=== PATIENT | female | born 1950 | race Caucasian/White ===

== ENCOUNTER → 2020-04-29 13:33 | Outpatient (CLI) | payer MEDICARE, SELFPAY ==
[2014-04-20 14:26] VITALS: BMI 21.9
[2020-04-29 15:43] LABS: Vitamin D,25 Hydroxy 32.1 ng/mL
[2020-04-29 16:01] LABS: Anion Gap 9 (5-15); BUN 13 mg/dL (7-18); BUN/Creat Ratio 14.5 RATIO (10-20); Calcium,Total 9.2 mg/dL (8.5-10.1); Chloride 106 mmol/L (98-107); Cholesterol 276 mg/dL (200); EST Glomerular Filtration Rate 66 mL/min (>60); Est Glom Filt Rate - Afr Amer 80 mL/min (>60); Glucose 87 mg/dL (74-106); High Density Lipoprotein 81 mg/dL; Sodium Level 141 mmol/L (136-145); Triglycerides 136 mg/dL; Very Low Density Lipoprotein 27 mg/dL (5-40)
== END ==
PROVIDERS: PCP Family Medicine; Referring Provider Family Medicine; Visit Provider Family Medicine
DX: Z00.00 Encounter for general adult medical examination without abnormal findings (principal); E56.9 Vitamin deficiency, unspecified
CPT/HCPCS: 36415; 80048; 80061; 82306

== ENCOUNTER → 2020-05-13 12:50 | Outpatient (CLI) | payer MEDICARE, SELFPAY ==
--- NOTE | 2020-05-13 12:54 | BI_ITS ---
MAMMOGRAPHY - BILATERAL SCREENING REASON FOR EXAM: Female, 70 years old. Routine annual screening examination. PERTINENT HISTORY: Non-contributory. TECHNIQUE: Digital bilateral breast ran (3D mammographic acquisition) in the CC and MLO projections. 2-D mediolateral oblique (MLO) and craniocaudad (CC) views of both breasts were obtained. CAD: Full Field Digital Mammography with Computer Added Detection was performed. COMPARISON: None. Baseline examination. FINDINGS: Breast Composition: There are scattered areas of fibroglandular density. There are no dominant masses or suspicious calcifications. No other significant abnormalities are identified. BI/SCRN MAMM (CAD)W/RAN BILAT IMPRESSION: Negative screening mammogram. Yearly followup mammogram recommended. (A) ASSESSMENT CATEGORY: BIRADS Category 1: Negative. A letter regarding these results will be sent to the patient by the facility within 30 days. Approximately 10% of breast cancers are not detected by mammography. A normal mammogram should not delay biopsy of a clinically suspicious abnormality. [id number] Electronically Signed: Juan Cardenas MD at 14:36 EDT , Service support ,
--- NOTE | 2020-05-13 12:55 | BD_ITS ---
STUDY: DUAL ENERGY X-RAY ABSORPTIOMETRY / DXA REASON FOR EXAM: Female, 70 years old. [id number] TECHNIQUE: Bone Mineral Density (BMD) measurements of lumbar spine and bilateral hips were obtained. COMPARISON: None. FINDINGS: Lumbar Spine (L1-L4): g/cm2 (0.756) / T-score (-3.4) / Z-score (-1.7) Findings are suggestive of osteoporosis with a high fracture risk. Left Femur Total: g/cm2 (0.620) / T-score (-3.1) / Z-score (-1.6) Left Femoral Neck: g/cm2 (0.578) / T-score (-3.3) / Z-score (-1.6) Right Femur Total: g/cm2 (0.583) / T-score (-3.4) / Z-score (-1.9) Right Femoral Neck: g/cm2 (0.560) / T-score (-3.4) / Z-score (-1.7) BD/Dexa Bone Density Study IMPRESSION: The patient is considered osteoporotic as outlined below according to World Musa Organization (WHO) criteria with a high fracture risk. Reference Information: The T-score is the number of standard deviations above or below the standard which is normal for young adults at their peak bone mineral density. The World Health Organization (WHO) interprets the T-scores as follows: Above -1 Normal bone density Between -1 and -2.5 Osteopenia Equal to / or below -2.5 Osteoporosis As a practical clinical guideline, osteopenia may be graded as follows: Mild -1 through -1.5 Moderate -1.6 through -2.0 Severe -2.1 through -2.4 The Z-score is the number of standard deviations above or below age-matched controls. A Z-score of less than -1.5 would be considered abnormal. References: 1. NIH Osteoporosis and Related Bone Diseases www osteo.org 2. International Society for Clinical Densitometry www iscd.org 3. National Osteoporosis Foundation www nof.org Electronically Signed: Juan Cardenas MD at 15:38 EDT , Service support ,
== END ==
LOC: OPBD 12:51
PROVIDERS: PCP Family Medicine; Referring Provider Family Medicine; Visit Provider Family Medicine
DX: Z12.31 Encounter for screening mammogram for malignant neoplasm of breast (principal); Z78.0 Asymptomatic menopausal state; M81.0 Age-related osteoporosis without current pathological fracture
CPT/HCPCS: 77063; 77067; 77080

== ENCOUNTER 2020-11-14 15:44 | Emergency (ER) | payer MEDICARE, SELFPAY ==
[2020-11-14] VITALS (15 sets, daily range): BP systolic 96–122; BP diastolic 54–74; PULSE 77–101; RESP 14–22; TEMP 36.6–38.3; O2SAT 88–96; BMI 23.6
--- NOTE | 2020-11-14 16:54 | EKG12_ITS ---
Test Reason : COUGH Blood Pressure : / mmHG Vent. Rate : 090 BPM Atrial Rate : 090 BPM P-R Int : 122 ms QRS Dur : 076 ms QT Int : 340 ms P-R-T Axes : 038 043 034 degrees QTc Int : 415 ms Normal sinus rhythm Normal ECG Confirmed by KATHERINE COBB, TONY ([id number]), digital editor CELESTE FERNANDES ([id number]) on 11/16/2020 1:57:12 PM Referred By: MOOKIE Confirmed By:TONY MURPHY MD
--- NOTE | 2020-11-14 16:55 | EDS_ITS ---
HPI History of Present Illness Chief Complaint: Cough Narrative Narrative: 70-year-old female presenting with a cough and generalized fatigue for about 8 days. Patient has not been vaccinated for COVID-19. She has no known sick contacts. Patient has been sleeping a lot over the last week. Her daughter has been monitoring her and she has not had a fever. She also has maintained pulse ox is 92%. On arrival today she is found to have a fever 100.9 and found to be hypoxic at 88% on room air. She states that her only real symptom is a cough and fatigue. She denies chills, body aches. Patient does relate a history of septic kidney stone in the past but states she did not have any real medical problems. Patient took ivermectin yesterday. Patient denies chest pain, shortness of breath. PFSH PFSH Home Medications dexamethasone 6 mg PO DAILY #7 tab 11/14/20 [Rx Last Taken Unknown] Allergy/AdvReac Type Severity Reaction Status Date / Time No Known Allergies Allergy Verified 11/14/20 15:45 Social History Smoking Status: Never smoker ROS ROS ED Constitutional Constitutional ED: Reports fever(s); Denies chills or sweats Eyes Eyes: Denies blurry vision or change in vision ENT ENT ED: Denies rhinorrhea or sore throat Cardiovascular Cardiovascular: Denies chest pain or palpitations Respiratory/Chest Respiratory/Chest: Reports cough; Denies dyspnea Gastrointestinal Gastrointestinal: Denies abdominal pain, nausea or vomiting Genitourinary Genitourinary ED: Denies dysuria or hematuria Musculoskeletal Musculoskeletal: Denies arthralgias or myalgias Integumentary Denies Abrasions or rash Neurologic Neurologic: Denies headache(s) or paresthesias EXAM Physical Exam Const Vital Signs: 11/14/20 15:45 11/14/20 16:11 11/14/20 16:35 Temperature 100.9 F H 100.9 F H Temperature Source Temporal Temporal Pulse Rate 101 H 101 H Respiratory Rate 14 14 Respiratory Effort Blood Pressure 104/61 104/61 Blood Pressure Mean 75 75 Pulse Ox 88 92 92 Pulse Ox [AMBULATING on Room Air] Pulse Ox [At REST on Room Air] Pulse Ox [At REST with Oxygen] Oxygen Delivery Method Room Air Nasal Cannula Nasal Cannula Oxygen Flow Rate (L/min) 2 2 Oxygen Flow Rate (L/min) [At REST with Oxygen] 11/14/20 16:38 11/14/20 17:07 11/14/20 17:10 Temperature 100.9 F H Temperature Source Temporal Pulse Rate 90 Respiratory Rate 17 Respiratory Effort Non-Labored Short of Breath Blood Pressure 122/65 H 122/65 H Blood Pressure Mean 84 84 Pulse Ox 95 Pulse Ox [AMBULATING on Room Air] Pulse Ox [At REST on Room Air] Pulse Ox [At REST with Oxygen] Oxygen Delivery Method Room Air Room Air Oxygen Flow Rate (L/min) Oxygen Flow Rate (L/min) [At REST with Oxygen] 11/14/20 17:56 11/14/20 18:00 11/14/20 19:00 Temperature 98.6 F 97.9 F Temperature Source Temporal Temporal Pulse Rate 87 81 77 Respiratory Rate 15 18 18 Respiratory Effort Blood Pressure 114/63 96/54 L 100/55 L Blood Pressure Mean 80 68 70 Pulse Ox 96 96 Pulse Ox [AMBULATING on Room Air] Pulse Ox [At REST on Room Air] Pulse Ox [At REST with Oxygen] Oxygen Delivery Method Oxygen Flow Rate (L/min) Oxygen Flow Rate (L/min) [At REST with Oxygen] 11/14/20 19:41 11/14/20 20:08 11/14/20 20:11 Temperature 98.1 F 98 F Temperature Source Temporal Temporal Pulse Rate Respiratory Rate Respiratory Effort Blood Pressure 98/57 L Blood Pressure Mean 70 Pulse Ox Pulse Ox [AMBULATING on Room Air] Pulse Ox [At REST on Room Air] Pulse Ox [At REST with Oxygen] Oxygen Delivery Method Oxygen Flow Rate (L/min) Oxygen Flow Rate (L/min) [At REST with Oxygen] 11/14/20 20:15 11/14/20 21:17 11/14/20 22:24 Temperature Temperature Source Pulse Rate 81 Respiratory Rate 16 Respiratory Effort Blood Pressure 119/74 Blood Pressure Mean Pulse Ox 96 96 Pulse Ox [AMBULATING on Room Air] 88 Pulse Ox [At REST on Room Air] 93 Pulse Ox [At REST with Oxygen] 95 Oxygen Delivery Method Nasal Cannula Oxygen Flow Rate (L/min) 2 Oxygen Flow Rate (L/min) [At REST with Oxygen] 2 Positive well nourished General Appearance ED: NAD; Negative for pallor HEENT Reports dry mucous membranes atraumatic Mouth ED: Yes dry mucous membranes Mouth: dry mucous membranes Eyes PERRL and EOMs intact bilaterally Resp normal respiratory effort Auscultation: diminished lung sounds bilateral Cardio regular rhythm Rate: tachycardic GI non-tender Palpation: soft Extremity normal to inspection General Extremety ED: Negative for edema or tenderness General Extremity: Negative for edema Neuro oriented x3 and CN's II-XII intact bilaterally Sensorium / Orientation: alert Psych mental status grossly normal Thought Process: normal thought process Skin General Skin Exam: Negative for jaundice or pallor Lesions: no lesions Rashes: no rashes MDM MDM MDM Narrative Medical decision making narrative: Patient presenting with generalized fatigue. She is 89 complaining of shortness of breath however she was found to be hypoxic requiring oxygen. She was stable on 2 L of oxygen. Patient tested positive for COVID-19 today. Blood work shows a leukocytosis she is lymphopenic. PT/INR normal. Renal function and electrolytes are stable. The only LFTs elevation is her AST. Troponin is 12. EKG shows a normal sinus rhythm at 90 bpm on my interpretation without any ST elevations or depressions or signs of ischemia. Chest x-ray my interpretation shows bilateral lower lobe infiltrates and the radiologist does agree. Patient is requiring 2 L to ambulate and maintain sats in the 90s. She did get set up for oxygen at home. She started on dexamethasone with first dose in the ED. Patient is discharged home in stable condition. Impression: 1. COVID-19 pneumonitis 2. Hypoxic respiratory Lab Data Labs: Laboratory Results - last 24 hr 11/14/20 11/14/20 11/14/20 17:10 17:10 17:10 WBC 5.4 RBC 4.25 Hgb 12.9 Hct 39.8 MCV 93.6 MCH 30.4 MCHC 32.4 RDW Std Deviation 44.2 H RDW Coeff of Ivette 12.9 Plt Count 163 MPV 11.2 Immature Gran % (Auto) 0.400 Neut % (Auto) 87.0 H Lymph % (Auto) 7.5 L Pierce % (Auto) 4.9 Eos % (Auto) 0.0 Baso % (Auto) 0.2 Absolute Neuts (auto) 4.7 Absolute Lymphs (auto) 0.40 L Nucleated RBC % 0 Differential Comment SCANNED PT 12.4 INR 1.0 APTT 33.0 Sodium 136 Potassium 4.2 Chloride 103 Carbon Dioxide 25.0 Anion Gap 8 BUN 21 H Creatinine 0.78 Estim Creat Clear Calc 42.68 Est GFR (MDRD) Af Amer 93 Est GFR (MDRD) Non-Af 77 BUN/Creatinine Ratio 26.8 H Glucose 109 H Lactic Acid Calcium 8.5 Total Bilirubin 0.30 AST 51 H ALT 25 Alkaline Phosphatase 53 Troponin I High Sens 12 Total Protein 6.9 Albumin 2.9 L Globulin 4.0 Albumin/Globulin Ratio 0.7 L Procalcitonin COVID-19 (JYOTI) 11/14/20 11/14/20 11/14/20 17:10 17:10 17:13 WBC RBC Hgb Hct MCV MCH MCHC RDW Std Deviation RDW Coeff of Ivette Plt Count MPV Immature Gran % (Auto) Neut % (Auto) Lymph % (Auto) Pierce % (Auto) Eos % (Auto) Baso % (Auto) Absolute Neuts (auto) Absolute Lymphs (auto) Nucleated RBC % Differential Comment PT INR APTT Sodium Potassium Chloride Carbon Dioxide Anion Gap BUN Creatinine Estim Creat Clear Calc Est GFR (MDRD) Af Amer Est GFR (MDRD) Non-Af BUN/Creatinine Ratio Glucose Lactic Acid 1.2 Calcium Total Bilirubin AST ALT Alkaline Phosphatase Troponin I High Sens Total Protein Albumin Globulin Albumin/Globulin Ratio Procalcitonin 0.38 H COVID-19 (JYOTI) Detected Radiography Diagnostic Testing: Radiology Impression Chest X-Ray 11/14/20 17:25 IMPRESSION: Bilateral lower lung pneumonia. Electronically Signed: Randi Nicholas MD at 18:29 EDT Tel , Service support , Discharge Plan Triage Chief Complaint: Cough Other Complaint: Weakness ED Provider: Humberto Carcamo Dx/Rx/DC Orders Instructions: Coronavirus Disease 2019 (COVID-19): Caring for Yourself or Others Prescriptions: New dexamethasone 6 mg tablet 6 mg PO DAILY Qty: 7 RF: 0 Primary Care Provider: Yg Aguero Referrals: Yg Aguero MD [Primary Care Provider] - Disposition Disposition: Home, Self Care Discharge Date/Time: 11/14/20 22:25
--- NOTE | 2020-11-14 16:59 | NURSING ---
NO OLD EKGS
[2020-11-14] MEDS: Acetaminophen 500 MG Tablet 1000 MG PO (17:17)
--- NOTE | 2020-11-14 17:25 | RAD_ITS ---
STUDY: X-RAY CHEST REASON FOR EXAM: Female, 70 years old. hypoxia TECHNIQUE: Frontal portable view of the chest COMPARISON: 20 April 2014 FINDINGS: There is bilateral basal opacities. There is no pneumothorax, pulmonary edema, cardiac megaly or pleural effusions. RAD/Chest 1 View (Portable) IMPRESSION: Bilateral lower lung pneumonia. Electronically Signed: Randi Nicholas MD at 18:29 EDT Tel , Service support ,
[2020-11-14 17:30] LABS: Prothrombin Time (Protime)PT. 12.4 SECONDS (11.7-14.9)
[2020-11-14 17:43] LABS: ALB/GLOB Ratio 0.7 RATIO (0.9-2.4); AST(SGOT) 51 U/L (15-37); Alanine Aminotransfer ALT/SGPT 25 U/L (13-56); Albumin, Serum 2.9 g/dL (3.2-5.0); Alkaline Phosphatase 53 U/L (45-117); Anion Gap 8 (5-15); BUN 21 mg/dL (7-18); BUN/Creat Ratio 26.8 RATIO (10-20); Calcium,Total 8.5 mg/dL (8.5-10.1); Chloride 103 mmol/L (98-107); Creatinine, Serum 0.78 mg/dL (0.55-1.02); EST Glomerular Filtration Rate 77 mL/min (>60); Est Glom Filt Rate - Afr Amer 93 mL/min (>60); Estimated Creatinine Clearance 42.68 ml/min; Glucose 109 mg/dL (74-106); Potassium 4.2 mmol/L (3.5-5.1); Protein, Total 6.9 g/dL (6.4-8.2); Sodium Level 136 mmol/L (136-145); Troponin-I HS 12 pg/mL (3.0-54.0)
[2020-11-14 17:47] LABS: Absolute Neutrophil Count 4.7 X10^3/uL (2.0-7.7); Basophil# 0.01 X10^3/uL; Basophil% 0.2 % (0-1); Hematocrit 39.8 % (37-47); Hemoglobin 12.9 g/dL (12.0-15.0); Lactic Acid 1.2 mmol/L (0.4-1.9); Lymphocyte % 7.5 % (19-41); Mean Corp Hgb Conc 32.4 g/dL (32-36); Mean Corpuscular Hgb 30.4 pg (27.0-32.0); Mean Corpuscular Volume 93.6 fL (81-99); Mean Platelet Vol. 11.2 fl (6.2-12.0); Monocyte# 0.26 X10^3/uL; Monocyte% 4.9 % (0-10); NRBC Flagged by Analyzer 0 % (0-5); Neutrophil # 4.67 X10^3/uL (2.7-7.7); POSITIVE DIFFERENTIAL YES; Platelet Count 163 K/mm3 (150-450); RBC Distribution Width CV 12.9 % (11.6-14.6); RBC Distribution Width SD 44.2 fl (35.1-43.9); Red Blood Count 4.25 M/mm3 (4.2-5.4); White Blood Count 5.4 K/mm3 (4.4-11.0)
[2020-11-14 17:50] LABS: Differential Indicated SCAN CRITERIA MET
[2020-11-14 17:52] LABS: Differential Comment SCANNED
[2020-11-14 18:00] LABS: Procalcitonin 0.38 ng/mL (0.00-0.09)
[2020-11-14] MEDS: dexAMETHasone 10 MG/ML Vial 6 MG IV (21:31)
--- NOTE | 2020-11-23 12:11 | CASEMGMT ---
RN CM ED COVID Home O2 Follow-up: This RN CM was notified on 11/22/20 of pt's discharge with home O2. On this date, this RN CM attempted to contact pt in follow-up to discharge with home O2. Non-identifying voicemail was obtained and non-decrypt message was left requesting a return call. Geoff Villalobos RN CM
== END 2020-11-14 22:25 | disposition home or self-care (01) ==
PROVIDERS: Emergency Provider Student in an Organized Health Care Education/Training Program; PCP Family Medicine
DX: U07.1 COVID-19 (principal); J12.82 Pneumonia due to coronavirus disease 2019; R09.02 Hypoxemia; R06.02 Shortness of breath
CPT/HCPCS: 71045; 80053; 83605; 84145; 84484; 85025; 85610; 85730; 87040; 87635; 93005; 96374; 99284; U0005; A4216; U0003

== ENCOUNTER → 2020-12-06 10:49 | Outpatient (CLI) | payer MEDICARE, SELFPAY ==
--- NOTE | 2020-12-06 10:51 | RAD_ITS ---
HISTORY: COUGH. TECHNIQUE: XR Chest 2 Views. # of images incl. paperwork: 2. COMPARISON: 11/14/2020. FINDINGS: CARDIOMEDIASTINAL STRUCTURES: Cardiac silhouette not enlarged. Mediastinal contour unremarkable with mild calcification of the aortic knob. LUNGS: New focal opacity in the right upper lobe. Increased bibasilar consolidation. PLEURA: Probable trace pleural effusions. OSSEOUS STRUCTURES: Mild degenerative change. RAD/Chest PA and Lateral IMPRESSION: Increased bibasilar pneumonia with probable trace pleural effusions. New focal opacity in the right upper lobe likely infection. Recommend follow-up to exclude pulmonary nodule. at 0857 Reported and signed by: Latrice Kennedy MD Electronically Signed: Latrice Kennedy MD at 8:56 EDT Tel , Service support ,
== END ==
PROVIDERS: PCP Family Medicine; Referring Provider Registered Nurse; Visit Provider Registered Nurse
DX: R05.9 Cough, unspecified (principal)
CPT/HCPCS: 71046

== ENCOUNTER → 2020-12-13 11:29 | Outpatient (CLI) | payer MEDICARE, SELFPAY ==
--- NOTE | 2020-12-13 11:34 | RAD_ITS ---
STUDY: X-RAY CHEST REASON FOR EXAM: Female, 70 years old. PNEUMONIA TECHNIQUE: PA and lateral views of the chest. COMPARISON: 12/06/2020 FINDINGS: Similar appearance of bilateral lower lung streaky opacities and elevated right hemidiaphragm. There is no demonstrated pleural abnormality. Normal size heart. Normal mediastinum and pablo. Normal visualized pulmonary arteries. Normal visualized aortic arch and descending thoracic aorta. There are diffuse degenerative changes of the visualized thoracic spine. There is no demonstrated abnormality of the visualized soft tissue structures of the upper abdomen. RAD/Chest PA and Lateral IMPRESSION: No significant change in bilateral lower lung infiltrates and elevated right hemidiaphragm. Electronically Signed: Yg Weber MD at 3:38 EDT Tel , Service support ,
== END ==
PROVIDERS: PCP Family Medicine; Referring Provider Registered Nurse; Visit Provider Registered Nurse
DX: J18.9 Pneumonia, unspecified organism (principal)
CPT/HCPCS: 71046

== ENCOUNTER → 2021-07-04 | Outpatient (CLI) | payer MEDICARE, SELFPAY ==
--- NOTE | 2021-07-04 12:23 | BI_ITS ---
MAMMOGRAPHY - BILATERAL SCREENING REASON FOR EXAM: Female, 71 years old. Routine annual screening examination. PERTINENT HISTORY: Non-contributory. TECHNIQUE: Digital bilateral breast ran (3D mammographic acquisition) in the CC and MLO projections. 2-D mediolateral oblique (MLO) and craniocaudad (CC) views of both breasts were obtained. CAD: Full Field Digital Mammography with Computer Added Detection was performed. COMPARISON: Comparison is made with prior study of 05/13/2020. FINDINGS: Breast Composition: There are scattered areas of fibroglandular density. There are no dominant masses or suspicious calcifications. Small benign-appearing bilateral axillary lymph nodes. No other significant abnormalities are identified. There has been no significant change since the prior study. BI/SCRN MAMM (CAD)W/RAN BILAT IMPRESSION: Stable bilateral screening mammogram. Yearly follow-up mammogram recommended. (A) ASSESSMENT CATEGORY: BIRADS Category 2: Benign. A letter regarding these results will be sent to the patient by the facility within 30 days. Approximately 10% of breast cancers are not detected by mammography. A normal mammogram should not delay biopsy of a clinically suspicious abnormality. [id number] Electronically Signed: Juan Cardenas MD at 13:29 EDT ,
== END | disposition home or self-care (01) ==
LOC: OPBI 12:21
PROVIDERS: PCP Family Medicine; Visit Provider Registered Nurse
DX: Z12.31 Encounter for screening mammogram for malignant neoplasm of breast (principal)
CPT/HCPCS: 77063; 77067